=== PATIENT | female | born 1980 | race Caucasian/White ===

== ENCOUNTER → 2018-05-16 | Outpatient (CLI) | payer BC ==
[~2018-05-16] MED LIST: BUPIVACAINE MPF 0.5% 30 ML VIAL. ONE; methylPREDNISolone ACETATE 40 MG/ML VIAL. ONE
== END | disposition home or self-care (01) ==
LOC: SURG 09:49
PROVIDERS: ATTEND Anesthesiology Pain Medicine
DX: M79.18 Myalgia, other site (principal); Z88.2 Allergy status to sulfonamides; F41.9 Anxiety disorder, unspecified; M54.12 Radiculopathy, cervical region; Z79.899 Other long term (current) drug therapy
CPT/HCPCS: 20553; J1030; J3490

== ENCOUNTER → 2018-07-18 | Outpatient (CLI) | payer BC | END | disposition home or self-care (01) | LOC: SURG 07:58 | PROVIDERS: ATTEND Anesthesiology Pain Medicine | DX: M47.812 Spondylosis without myelopathy or radiculopathy, cervical region (principal); F41.9 Anxiety disorder, unspecified | CPT/HCPCS: 99213 ==